=== PATIENT | female | born 1940 | race Caucasian/White ===

== ENCOUNTER 2022-11-16 08:07 | Inpatient (IN) ==
[2022-11-16] MEDS ORDERED: ONDANSETRON 4 MG/2 ML VIAL IV PRN (18:53)
[2022-11-16] MEDS ORDERED: ACETAMINOPHEN 325 MG TABLET PO PRN (18:53)
[2022-11-16 19:42] LABS: Basophils % 0.3 % (0.0-0.8); Eosinophils # 0.2 10*3/uL (0.0-0.87); Eosinophils % 1.8 % (0.00-10.9); Hematocrit 30.7 VOL% (35.7-47.0); Hemoglobin 9.8 GM/DL (12.0-16.0); Immature Granulocytes % 0.6 %; Immature Granulocytes Absolute 0.06 #; Lymphocytes # 1.4 10*3/uL (1.4-4.0); Lymphocytes % 14.3 % (21.3-54.2); Mean Corpuscular HGB Conc 31.9 GM/DL (32-36); Mean Corpuscular Volume 97.8 FL (87-102); Mean Platelet Volume 10.1 FL (9.6-12.0); Monocytes # 0.8 10*3/uL (0.11-0.8); Monocytes % 8.6 % (1.7-12.7); Neutrophils % 74.4 % (38.7-73.9); Platelet Count 244 T/CUMM (130-400); Red Blood Count 3.14 MC/CUMM (3.8-5.5); Red Cell Distribution Width 14.1 % (9.3-17.3); White Blood Count 9.4 T/CUMM (4-12)
[2022-11-16 20:06] LABS: Albumin 2.7 G/DL (3.4-5.0); Bilirubin,Total 0.8 MG/DL (0.20-1.00); Calcium 9.4 MG/DL (8.5-10.1); Osmolality,Calculated 282.4 MOS/KG (273-304); Potassium 3.1 MMOL/L (3.5-5.1); Total Protein 5.8 G/DL (6.4-8.2)
[2022-11-16] MEDS: VANCOMYCIN INJ 1,000 MG in SODIUM CHLORIDE 0.9% 250 ML IV SCH (21:29)
[2022-11-16 21:54] LABS: INR 1.4
[2022-11-16] MEDS: PIPERACILLIN/TAZOBACTAM 3,375 MG in SODIUM CHLORIDE 0.9% 100 ML IV SCH (22:44)
[2022-11-16] MEDS: POTASSIUM CHLORIDE 20 MEQ TABLET PO PRN (22:50)
[2022-11-17] MEDS: POTASSIUM CHLORIDE 20 MEQ TABLET PO PRN ×3 (01:15→05:06)
[2022-11-17] MEDS: PIPERACILLIN/TAZOBACTAM 3,375 MG in SODIUM CHLORIDE 0.9% 100 ML IV SCH ×3 (05:09→21:29)
[2022-11-17 07:17] LABS: Basophils % 0.5 % (0.0-0.8); Eosinophils # 0.2 10*3/uL (0.0-0.87); Eosinophils % 2.3 % (0.00-10.9); Hematocrit 30.2 VOL% (35.7-47.0); Hemoglobin 9.7 GM/DL (12.0-16.0); Immature Granulocytes % 0.6 %; Immature Granulocytes Absolute 0.05 #; Lymphocytes # 1.2 10*3/uL (1.4-4.0); Lymphocytes % 14.7 % (21.3-54.2); Mean Corpuscular HGB Conc 32.1 GM/DL (32-36); Mean Corpuscular Volume 98.4 FL (87-102); Mean Platelet Volume 10.1 FL (9.6-12.0); Monocytes # 0.8 10*3/uL (0.11-0.8); Monocytes % 9.5 % (1.7-12.7); Neutrophils % 72.4 % (38.7-73.9); Platelet Count 245 T/CUMM (130-400); Red Blood Count 3.07 MC/CUMM (3.8-5.5); Red Cell Distribution Width 14.1 % (9.3-17.3)
[2022-11-17 07:39] LABS: Albumin 2.5 G/DL (3.4-5.0); Bilirubin,Total 0.8 MG/DL (0.20-1.00); Calcium 8.8 MG/DL (8.5-10.1); Osmolality,Calculated 287.8 MOS/KG (273-304); Potassium 4.7 MMOL/L (3.5-5.1); Total Protein 5.2 G/DL (6.4-8.2)
[2022-11-17] MEDS: PANTOPRAZOLE 40 MG TABLET PO SCH (08:35)
[2022-11-17] MEDS ORDERED: POTASSIUM CHLORIDE 20 MEQ TABLET PO ONE (09:00)
[2022-11-17] MEDS ORDERED: MORPHINE 2 MG/1 ML SYRINGE IV PRN (09:08)
[2022-11-17] MEDS: SODIUM HYPOCHLORITE 0.25% IRRIG 473 ML BOTTLE TOP SCH (13:52)
[2022-11-17] MEDS: VANCOMYCIN INJ 1,000 MG in SODIUM CHLORIDE 0.9% 250 ML IV SCH (18:35)
[2022-11-17] MEDS: ZINC OXIDE PASTE 113 GM TUBE TOP SCH (21:29)
[2022-11-18 04:57] LABS: Calcium 9.1 MG/DL (8.5-10.1); Osmolality,Calculated 285.8 MOS/KG (273-304)
[2022-11-18] MEDS: PIPERACILLIN/TAZOBACTAM 3,375 MG in SODIUM CHLORIDE 0.9% 100 ML IV SCH ×2 (05:19→15:58)
[2022-11-18] MEDS ORDERED: MAGNESIUM SULF RIDER 2 GM/50 ML PREMIX IV PRN (05:21)
[2022-11-18] MEDS: MAGNESIUM SULF RIDER 4 GM/100 ML PREMIX IV PRN (06:24)
[2022-11-18] MEDS: VANCOMYCIN INJ 1,000 MG in SODIUM CHLORIDE 0.9% 250 ML IV SCH (10:00)
[2022-11-18] MEDS: ZINC OXIDE PASTE 113 GM TUBE TOP SCH ×2 (10:00→21:45)
[2022-11-18] MEDS: SODIUM HYPOCHLORITE 0.25% IRRIG 473 ML BOTTLE TOP SCH (11:21)
[2022-11-18] MEDS ORDERED: KETAMINE 500 MG/10 ML VIAL ONE (11:29)
[2022-11-18] MEDS ORDERED: fentaNYL 100 MCG/2 ML VIAL ONE (11:29)
[2022-11-18] MEDS ORDERED: LACTATED RINGERS 1,000 ML IV SCH (11:30)
[2022-11-18] MEDS ORDERED: BUPIVACAINE MPF 0.25% 10 ML VIAL ONE (12:26)
[2022-11-18] MEDS ORDERED: LIDOCAINE 1%/EPI INJ 20 ML VIAL ONE (12:26)
[2022-11-18 13:53] LABS: Basophils % 0.4 % (0.0-0.8); Eosinophils # 0.2 10*3/uL (0.0-0.87); Eosinophils % 2.3 % (0.00-10.9); Hematocrit 32.9 VOL% (35.7-47.0); Hemoglobin 10.1 GM/DL (12.0-16.0); Immature Granulocytes % 0.8 %; Immature Granulocytes Absolute 0.07 #; Lymphocytes # 1.7 10*3/uL (1.4-4.0); Lymphocytes % 18.3 % (21.3-54.2); Mean Corpuscular HGB Conc 30.7 GM/DL (32-36); Mean Corpuscular Volume 98.8 FL (87-102); Mean Platelet Volume 9.6 FL (9.6-12.0); Monocytes % 10.4 % (1.7-12.7); Neutrophils % 67.8 % (38.7-73.9); Platelet Count 271 T/CUMM (130-400); Red Blood Count 3.33 MC/CUMM (3.8-5.5); Red Cell Distribution Width 13.9 % (9.3-17.3); White Blood Count 9.1 T/CUMM (4-12)
[2022-11-18] MEDS: PANTOPRAZOLE 40 MG TABLET PO SCH (15:00)
[2022-11-19] MEDS: PIPERACILLIN/TAZOBACTAM 3,375 MG in SODIUM CHLORIDE 0.9% 100 ML IV SCH ×3 (00:07→16:19)
[2022-11-19 04:38] LABS: Basophils # 0.1 10*3/uL (0.0-0.2); Basophils % 0.7 % (0.0-0.8); Eosinophils # 0.4 10*3/uL (0.0-0.87); Hematocrit 29.9 VOL% (35.7-47.0); Hemoglobin 9.4 GM/DL (12.0-16.0); Immature Granulocytes % 0.9 %; Immature Granulocytes Absolute 0.07 #; Lymphocytes # 1.7 10*3/uL (1.4-4.0); Lymphocytes % 20.4 % (21.3-54.2); Mean Corpuscular HGB Conc 31.4 GM/DL (32-36); Mean Corpuscular Volume 98.4 FL (87-102); Monocytes # 0.9 10*3/uL (0.11-0.8); Monocytes % 10.8 % (1.7-12.7); Neutrophils % 62.2 % (38.7-73.9); Platelet Count 294 T/CUMM (130-400); Red Blood Count 3.04 MC/CUMM (3.8-5.5); White Blood Count 8.2 T/CUMM (4-12)
[2022-11-19 04:59] LABS: Calcium 9.9 MG/DL (8.5-10.1); Osmolality,Calculated 280.1 MOS/KG (273-304); Potassium 3.9 MMOL/L (3.5-5.1)
[2022-11-19] MEDS: SODIUM HYPOCHLORITE 0.25% IRRIG 473 ML BOTTLE TOP SCH (08:43)
[2022-11-19] MEDS: PANTOPRAZOLE 40 MG TABLET PO SCH (08:44)
[2022-11-19] MEDS: ZINC OXIDE PASTE 113 GM TUBE TOP SCH ×2 (08:44→21:17)
[2022-11-19] MEDS: POLYETHYLENE GLYCOL POWDER 17 GM PACK PO SCH (12:26)
[2022-11-19] MEDS ORDERED: METOPROLOL SUCCINATE XL 100 MG TABLET PO ONE (12:43)
[2022-11-19] MEDS: MEMANTINE 10 MG TABLET PO SCH (21:15)
[2022-11-19] MEDS: DOCUSATE SODIUM 100 MG CAPSULE PO SCH (21:15)
[2022-11-20] MEDS: PIPERACILLIN/TAZOBACTAM 3,375 MG in SODIUM CHLORIDE 0.9% 100 ML IV SCH ×3 (00:30→16:58)
[2022-11-20 04:31] LABS: Basophils % 0.3 % (0.0-0.8); Eosinophils # 0.4 10*3/uL (0.0-0.87); Eosinophils % 4.6 % (0.00-10.9); Hematocrit 30.1 VOL% (35.7-47.0); Hemoglobin 9.3 GM/DL (12.0-16.0); Immature Granulocytes Absolute 0.09 #; Lymphocytes # 1.6 10*3/uL (1.4-4.0); Lymphocytes % 18.8 % (21.3-54.2); Mean Corpuscular HGB Conc 30.9 GM/DL (32-36); Mean Corpuscular Volume 99.7 FL (87-102); Mean Platelet Volume 9.5 FL (9.6-12.0); Monocytes # 1.1 10*3/uL (0.11-0.8); Monocytes % 12.2 % (1.7-12.7); Neutrophils % 63.1 % (38.7-73.9); Platelet Count 286 T/CUMM (130-400); Red Blood Count 3.02 MC/CUMM (3.8-5.5); White Blood Count 8.7 T/CUMM (4-12)
[2022-11-20 04:44] LABS: Osmolality,Calculated 279.3 MOS/KG (273-304); Potassium 3.8 MMOL/L (3.5-5.1)
[2022-11-20] MEDS: METOPROLOL SUCCINATE XL 100 MG TABLET PO SCH (08:47)
[2022-11-20] MEDS: COLCHICINE 0.6 MG CAPSULE PO SCH (08:47)
[2022-11-20] MEDS: MEMANTINE 10 MG TABLET PO SCH ×2 (08:47→21:31)
[2022-11-20] MEDS: RIVAROXABAN 20 MG TABLET PO SCH (08:48)
[2022-11-20] MEDS: CLOPIDOGREL 75 MG TABLET PO SCH (08:48)
[2022-11-20] MEDS: PANTOPRAZOLE 40 MG TABLET PO SCH (08:48)
[2022-11-20] MEDS: MAGNESIUM OXIDE 400 MG TABLET PO SCH (08:48)
[2022-11-20] MEDS: SODIUM HYPOCHLORITE 0.25% IRRIG 473 ML BOTTLE TOP SCH (10:35)
[2022-11-20] MEDS: DOCUSATE SODIUM 100 MG CAPSULE PO SCH ×2 (10:35→21:30)
[2022-11-20] MEDS: ZINC OXIDE PASTE 113 GM TUBE TOP SCH ×2 (10:35→21:32)
[2022-11-20] MEDS: POLYETHYLENE GLYCOL POWDER 17 GM PACK PO SCH (10:35)
[2022-11-21] MEDS: PIPERACILLIN/TAZOBACTAM 3,375 MG in SODIUM CHLORIDE 0.9% 100 ML IV SCH ×2 (00:44→09:04)
[2022-11-21 04:57] LABS: Basophils % 0.5 % (0.0-0.8); Eosinophils # 0.5 10*3/uL (0.0-0.87); Eosinophils % 6.3 % (0.00-10.9); Hematocrit 30.9 VOL% (35.7-47.0); Hemoglobin 9.8 GM/DL (12.0-16.0); Immature Granulocytes % 1.7 %; Immature Granulocytes Absolute 0.14 #; Lymphocytes # 1.6 10*3/uL (1.4-4.0); Lymphocytes % 19.6 % (21.3-54.2); Mean Corpuscular HGB Conc 31.7 GM/DL (32-36); Mean Corpuscular Volume 97.2 FL (87-102); Mean Platelet Volume 9.7 FL (9.6-12.0); Monocytes % 11.6 % (1.7-12.7); Neutrophils % 60.3 % (38.7-73.9); Platelet Count 295 T/CUMM (130-400); Red Blood Count 3.18 MC/CUMM (3.8-5.5); Red Cell Distribution Width 13.8 % (9.3-17.3); White Blood Count 8.2 T/CUMM (4-12)
[2022-11-21 05:24] LABS: Calcium 9.5 MG/DL (8.5-10.1); Osmolality,Calculated 279.1 MOS/KG (273-304); Potassium 3.5 MMOL/L (3.5-5.1)
[2022-11-21] MEDS: MAGNESIUM SULF RIDER 4 GM/100 ML PREMIX IV PRN (07:24)
[2022-11-21] MEDS ORDERED: MAGNESIUM SULF RIDER 4 GM/100 ML PREMIX IV ONE (08:00)
[2022-11-21] MEDS: COLCHICINE 0.6 MG CAPSULE PO SCH (09:05)
[2022-11-21] MEDS: POLYETHYLENE GLYCOL POWDER 17 GM PACK PO SCH (09:05)
[2022-11-21] MEDS: METOPROLOL SUCCINATE XL 100 MG TABLET PO SCH (09:05)
[2022-11-21] MEDS: DOCUSATE SODIUM 100 MG CAPSULE PO SCH ×2 (09:05→20:53)
[2022-11-21] MEDS: PANTOPRAZOLE 40 MG TABLET PO SCH (09:05)
[2022-11-21] MEDS: RIVAROXABAN 20 MG TABLET PO SCH (09:05)
[2022-11-21] MEDS: MAGNESIUM OXIDE 400 MG TABLET PO SCH (09:05)
[2022-11-21] MEDS: MEMANTINE 10 MG TABLET PO SCH ×2 (09:05→20:53)
[2022-11-21] MEDS: CLOPIDOGREL 75 MG TABLET PO SCH (09:05)
[2022-11-21] MEDS: ZINC OXIDE PASTE 113 GM TUBE TOP SCH ×2 (09:06→22:35)
[2022-11-21] MEDS: SODIUM HYPOCHLORITE 0.25% IRRIG 473 ML BOTTLE TOP SCH (09:06)
[2022-11-21] MEDS: CEFUROXIME 500 MG TABLET PO SCH (20:53)
[2022-11-22 04:44] LABS: Basophils % 0.4 % (0.0-0.8); Eosinophils # 0.5 10*3/uL (0.0-0.87); Eosinophils % 4.9 % (0.00-10.9); Hematocrit 30.7 VOL% (35.7-47.0); Hemoglobin 9.7 GM/DL (12.0-16.0); Immature Granulocytes % 1.7 %; Immature Granulocytes Absolute 0.17 #; Lymphocytes % 20.6 % (21.3-54.2); Mean Corpuscular HGB Conc 31.6 GM/DL (32-36); Mean Corpuscular Volume 98.4 FL (87-102); Mean Platelet Volume 9.4 FL (9.6-12.0); Monocytes % 10.5 % (1.7-12.7); Neutrophils % 61.9 % (38.7-73.9); Platelet Count 327 T/CUMM (130-400); Red Blood Count 3.12 MC/CUMM (3.8-5.5); White Blood Count 9.8 T/CUMM (4-12)
[2022-11-22 05:03] LABS: Calcium 8.8 MG/DL (8.5-10.1); Osmolality,Calculated 279.1 MOS/KG (273-304); Potassium 3.4 MMOL/L (3.5-5.1)
[2022-11-22] MEDS: METOPROLOL SUCCINATE XL 100 MG TABLET PO SCH (08:14)
[2022-11-22] MEDS: COLCHICINE 0.6 MG CAPSULE PO SCH (08:14)
[2022-11-22] MEDS: CEFUROXIME 500 MG TABLET PO SCH (08:14)
[2022-11-22] MEDS: RIVAROXABAN 20 MG TABLET PO SCH (08:14)
[2022-11-22] MEDS: MAGNESIUM OXIDE 400 MG TABLET PO SCH (08:15)
[2022-11-22] MEDS: POTASSIUM CHLORIDE 20 MEQ TABLET PO PRN (08:15)
[2022-11-22] MEDS: MEMANTINE 10 MG TABLET PO SCH (08:15)
[2022-11-22] MEDS: PANTOPRAZOLE 40 MG TABLET PO SCH (08:15)
[2022-11-22] MEDS: CLOPIDOGREL 75 MG TABLET PO SCH (08:15)
[2022-11-22] MEDS: POLYETHYLENE GLYCOL POWDER 17 GM PACK PO SCH (10:48)
[2022-11-22] MEDS: DOCUSATE SODIUM 100 MG CAPSULE PO SCH (10:48)
[2022-11-22 11:36] VITALS: BP 135/64
[2022-11-22] MEDS: ZINC OXIDE PASTE 113 GM TUBE TOP SCH (13:21)
[2022-11-22] MEDS: SODIUM HYPOCHLORITE 0.25% IRRIG 473 ML BOTTLE TOP SCH (13:21)
== END 2022-11-22 15:07 | disposition swing bed (61) | DRG 580 ==
LOC: SUATTDRO 17:25 → N.2E 17:25
PROVIDERS: ADMIT Internal Medicine; ATTEND Emergency Medicine